=== PATIENT | male | born 1965 | race Native Hawaiian/Other Pacific Islander ===

== ENCOUNTER 2017-06-22 00:17 | Emergency (ER) | payer MEDICAID ==
[2017-06-22 00:34] VITALS: TEMP 97.8
[2017-06-22] MEDS ORDERED: Aspirin 325 mg EC Tablets PO STA (01:07)
--- NOTE | 2017-06-22 01:10 | C.PDOC ---
History Of Present Illness A 51 y/o M presents to the ER stating that he subjectively cannot catch his breath that began today. Patient has a prior evaluation of chest pain and discomfort which was found to be all normal. Normal exercise stress test was done with Dr. Soto. Denies fever, chills, chest pain, palpitations, diaphoresis, light headedness, or any other complaints. Time Seen by Provider: 06/22/17 01:03 Chief Complaint (Nursing): Shortness Of Breath History Per: Patient History/Exam Limitations: no limitations Onset/Duration Of Symptoms: Hrs Current Symptoms Are (Timing): Still Present Severity: Mild Recent travel outside of the [place]: No Additional History Per: Patient Past Medical History Reviewed: Historical Data, Nursing Documentation, Vital Signs Vital Signs: Last Vital Signs Temp 97.8 F 06/22/17 00:31 Pulse 87 06/22/17 02:21 Resp 18 06/22/17 02:21 BP 113/59 L 06/22/17 02:21 Pulse Ox 97 06/22/17 02:21 Family History: States: Unknown Family Hx - Social History Hx Alcohol Use: No Hx Substance Use: No - Immunization History Hx Tetanus Toxoid Vaccination: No Hx Influenza Vaccination: No Hx Pneumococcal Vaccination: No Review Of Systems Except As Marked, All Systems Reviewed And Found Negative. Constitutional: Negative for: Fever, Chills, Sweats Cardiovascular: Negative for: Chest Pain, Palpitations, Light Headedness Respiratory: Positive for: Shortness of Breath Physical Exam - Physical Exam Appears: Well, Non-toxic, No Acute Distress, Other (Normal appearing, male) Skin: Warm, Dry Head: Atraumatic, Normacephalic Cardiovascular: Rhythm Regular Respiratory: Normal Breath Sounds, No Rales, No Rhonchi, No Wheezing (No SOB), Other (Close mouth breathing) Gastrointestinal/Abdominal: Soft, No Tenderness Neurological/Psych: Oriented x3, Normal Speech, Normal Cognition ED Course And Treatment - Laboratory Results Result Diagrams: 06/22/17 01:19 06/22/17 01:19 Lab Interpretation: Normal (d-dimer neg, trop/bnp neg.) ECG: Interpreted By Me ECG Rhythm: Sinus Rhythm ECG Interpretation: Normal Rate From EC O2 Sat by Pulse Oximetry: 100 (RA) Pulse Ox Interpretation: Normal - Radiology CXR: Interpreted by Me CXR Interpretation: Yes: No Acute Disease Progress Note: asa, xanax Reevaluation Time: 02:09 Reassessment Condition: Improved (takes a full satisfying breath and more calm after xanax) Medical Decision Making Medical Decision Making: Impression: A 51 y/o M presents to the ER stating that he subjectively cannot catch his breath that began today. Plans: * EKG * CXR * IV fluids * Ecotrin * Xanax * Nasal cannula normal exam and w/u and normal EST with Dr. Soto 02/21, subjective sob relieved by xanax, prob anxiety related and NOT cardiological. Disposition Doctor Will See Patient In The: Office Counseled Patient/Family Regarding: Studies Performed, Diagnosis - Disposition Referrals: [facility] [Outside] [facility] [Outside] [facility] [Outside] [facility] [Outside] Disposition: HOME/ ROUTINE Disposition Time: 02:10 Condition: GOOD Additional Instructions: continue in our outpatient clinic as needed you had a normal cardiac workup today- your subjective shortness of breath relieved with Xanax (anxiety medicine) Consider outpatient psych/social working evaluation through our [facility] Please utilize our [facility] to help arrange appropriate appointments. Instructions: Dyspnea (ED), Anxiety (ED) Forms: [facility] (Armenian) - Clinical Impression Clinical Impression: SOB (shortness of breath), Anxiety - Scribe Statement The provider has reviewed the documentation as recorded by the Scribsean roca All medical record entries made by the Scribe were at my direction and personally dictated by me. I have reviewed the chart and agree that the record accurately reflects my personal performance of the history, physical exam, medical decision making, and the department course for this patient. I have also personally directed, reviewed, and agree with the discharge instructions and disposition.
[2017-06-22 01:22] LABS: BASO # 0.1 K/uL (0.0-0.2); BASO % 1.1 % (0.0-2.0); EOS # 0.3 K/uL (0.0-0.7); EOS % 4.5 % (0.0-4.0); HEMATOCRIT 42.6 % (35.0-51.0); LYMPH % 54.3 % (20.0-40.0); MEAN CELL VOLUME 83.8 fL (80.0-94.0); MEAN CORPUSCULAR HEMOGLOBIN 28.1 pg (27.0-31.0); MEAN CORPUSCULAR HGB CONC 33.5 g/dL (33.0-37.0); MEAN PLATELET VOLUME 8.2 fL (7.2-11.7); MONO # 0.5 K/uL (0.0-0.8); MONO % 6.5 % (0.0-10.0); RED CELL DISTRIBUTION WIDTH 13.2 % (11.5-14.5); WHITE BLOOD COUNT 7.4 K/uL (4.8-10.8)
[2017-06-22] MEDS ORDERED: Aspirin 325 mg EC Tablets PO ONE (01:22)
[2017-06-22 01:30] LABS: CHLORIDE 101 mmol/L (98-107); SODIUM 140 mmol/L (132-148)
[2017-06-22 01:32] LABS: GFR AFRICAN-AMERICAN > 60
[2017-06-22 01:33] LABS: ALB/GLOB RATIO 1.4 (1.0-2.1); ALKALINE PHOSPHATASE 68 U/L (38-126); ALT/SGPT 30 U/L (21-72); AST/SGOT 25 U/L (17-59); BILIRUBIN,TOTAL 0.6 mg/dL (0.2-1.3); BLOOD UREA NITROGEN 11 mg/dL (9-20); CALCIUM 9.1 mg/dl (8.6-10.4); CARBON DIOXIDE 25 mmol/L (22-30); GLUCOSE,RANDOM 93 mg/dL (75-110); TOTAL PROTEIN 6.9 g/dL (6.3-8.3)
[2017-06-22 01:34] LABS: PARTIAL THROMBOPLASTIN TIME 33 SECONDS (21-34)
[2017-06-22 02:22] VITALS: BP 113/59; PULSE 87; RESP 18
[2017-06-22 03:00] VITALS: O2SAT 100
--- NOTE | 2017-06-22 08:17 | RAD ---
PROCEDURE: CHEST RADIOGRAPH, 1 VIEW HISTORY: SOB COMPARISON: None available. FINDINGS: LUNGS: Clear. PLEURA: No pneumothorax or pleural fluid seen. CARDIOVASCULAR: Normal. OSSEOUS STRUCTURES: No significant abnormalities. VISUALIZED UPPER ABDOMEN: Normal. OTHER FINDINGS: None. IMPRESSION: Baseline suboptimal portable chest x-ray. No evidence of acute pulmonary disease.
--- NOTE | 2017-06-25 18:21 | CARD ---
APPROVED REPORT EKG Measurement Heart [id number] <Conclusion> Normal sinus rhythm Normal ECG
== END 2017-06-22 02:22 | disposition home or self-care (01) ==
LOC: C.ER 00:17
DX: F41.9 Anxiety disorder, unspecified (principal); R06.02 Shortness of breath